=== PATIENT | female | born 1980 | race Hispanic/Latino ===

== ENCOUNTER → 2019-02-09 16:32 | Outpatient (CLI) | payer MEDICAID, SELFPAY ==
--- NOTE | 2019-02-09 16:37 | DI.US.S_ITS ---
PROCEDURE: US OB <= 14 WEEKS FETUS INDICATIONS: INITIAL DATING ULTRASOUND OUTSIDE/PRIOR DATING DATA: Last menstrual period (LMP): 12/17/18. LMP-based estimated date of delivery (YOVANI): 09/23/19. First dating scan (date and location): 02/09/19. Estimated date of delivery (YOVANI) from first dating scan: 10/07/19. TECHNIQUE: Real-time scanning was performed of the fetus and maternal pelvic organs, with image documentation. Endovaginal scanning was also performed to better visualize the fetus and maternal ovaries. COMPARISON: None. FINDINGS: Embryo: Intrauterine gestational sac present with mean sac diameter 1.0 cm corresponding to 5 weeks 5 days. A double decidual sac sign is present. No yolk sac or pole at this time. Measurement variability in dating: +/- 4 weeks by LMP, +/- 7 days by mean sac diameter (use before 6 weeks gestation if crown-rump length not able to be measured), +/- 5 days by crown-rump length (up to 8 weeks 6 days gestation), +/- 7 days by crown-rump length (up to 13 weeks 6 days gestation). Maternal organs: Ovaries within normal limits bilaterally.. Limited images through the kidneys demonstrate no hydronephrosis. IMPRESSION: Intrauterine gestational sac with double decidual sac sign and no yolk sac or pole at this time. Based on the main sac diameter, estimated gestational age is 5 weeks 5 days. If indicated, followup ultrasound in 1 week could be performed to assess viability. Dictated by: John ORNELAS Interpreted: Leena Castillo MD on 02/10/2019 at 8:58 Approved by: Leena Castillo M.D. on 02/10/2019 at 13:14
== END ==
PROVIDERS: Visit Provider Family Medicine
DX: Z34.81 Encounter for supervision of other normal pregnancy, first trimester (principal); Z3A.01 Less than 8 weeks gestation of pregnancy
CPT/HCPCS: 76801; 76817

== ENCOUNTER → 2019-02-16 17:02 | Outpatient (CLI) | payer MEDICAID, SELFPAY ==
[2019-02-16 18:27] LABS: HCG Quantitative /Beta subunit 343.59 mIU/mL
== END ==
PROVIDERS: Visit Provider Family Medicine
DX: O20.9 Hemorrhage in early pregnancy, unspecified (principal)
CPT/HCPCS: 84702

== ENCOUNTER → 2019-02-21 15:28 | Outpatient (CLI) | payer MEDICAID, SELFPAY ==
[2019-02-21 17:07] LABS: HCG Quantitative /Beta subunit 79.33 mIU/mL
== END ==
PROVIDERS: PCP Family Medicine; Visit Provider Family Medicine
DX: O20.9 Hemorrhage in early pregnancy, unspecified (principal)
CPT/HCPCS: 36415; 84702

== ENCOUNTER → 2019-04-18 10:50 | Outpatient (CLI) | payer MEDICAID, SELFPAY ==
[2019-04-18 12:25] LABS: HCG Quantitative /Beta subunit < 2.39 mIU/mL
== END ==
PROVIDERS: PCP Family Medicine; Visit Provider Family Medicine
DX: O03.9 Complete or unspecified spontaneous abortion without complication (principal)
CPT/HCPCS: 36415; 84702

== ENCOUNTER → 2019-04-24 14:36 | Outpatient (CLI) | payer MEDICAID, SELFPAY ==
--- NOTE | 2019-04-24 14:37 | DI.US.S_ITS ---
PROCEDURE: US PELVIC COMPLETE INDICATIONS: 6 WEEKS POST SAB; BLEEDING TECHNIQUE: Real-time scanning was performed of the pelvic organs, with image documentation. Additional endovaginal scanning was necessary due to incomplete visualization of the adnexal and endometrial structures by transabdominal scanning. COMPARISON: None. FINDINGS: Transabdominal scanning: Limited scanning through the kidneys shows no hydronephrosis. No pathologic free abdominal or pelvic fluid. Endovaginal scanning: Uterus: Uterus is normal in size at 4.7 x 7.4 x 9.6 cm, anteverted. The endometrium measures 8.6 mm in combined thickness. There is no sign of retained products of conception. Ovaries: The ovaries measure 3.3 x 1.7 x 1.6 cm on the right and 3.3 x 2.0 x 2.2 cm the left IMPRESSION: Normal pelvic ultrasound, no evidence of retained products of conception. Uterus is anteverted. Dictated by: Erich Mccollum M.D. on 04/24/2019 at 15:46 Approved by: Erich Mccollum M.D. on 04/24/2019 at 15:48
== END ==
PROVIDERS: PCP Family Medicine; Visit Provider Family Medicine
DX: O03.6 Delayed or excessive hemorrhage following complete or unspecified spontaneous abortion (principal)
CPT/HCPCS: 76830; 76856

== ENCOUNTER → 2019-09-04 16:06 | Outpatient (CLI) | payer MEDICAID, SELFPAY ==
--- NOTE | 2019-09-04 16:08 | DI.US.S_ITS ---
PROCEDURE: US OB <= 14 WEEKS FETUS INDICATIONS: SIZE AND DATES OUTSIDE/PRIOR DATING DATA: Last menstrual period (LMP): 07/12/19. LMP-based estimated date of delivery (YOVANI): 04/17/20. First dating scan (date and location): 09/04/19. Estimated date of delivery (YOVANI) from first dating scan: 04/18/20. TECHNIQUE: Real-time scanning was performed of the fetus and maternal pelvic organs, with image documentation. Endovaginal scanning was also performed to better visualize the fetus and maternal ovaries. COMPARISON: [facility], , OB <= 14 WEEKS FETUS, 02/09/2019, 17:10. FINDINGS: Embryo: [place]-rump length measures 14 mm corresponding to 7 weeks 4 days. Her images 152 beats per minute. Small perigestational sac bleed site measuring 1.1 x 0.8 x 0.9 cm Measurement variability in dating: +/- 4 weeks by LMP, +/- 7 days by mean sac diameter (use before 6 weeks gestation if crown-rump length not able to be measured), +/- 5 days by crown-rump length (up to 8 weeks 6 days gestation), +/- 7 days by crown-rump length (up to 13 weeks 6 days gestation). Maternal organs: Ovaries within normal limits, with right corpus luteal cyst.. Limited images through the kidneys demonstrate no hydronephrosis. IMPRESSION: 7 week 4 day single living IUP and small perigestational sac bleed. Dictated by: John ORNELAS Interpreted: Chaim Cisneros MD on 09/04/2019 at 17:08 Approved by: Chaim Cisneros M.D. on 09/04/2019 at 17:48
== END ==
PROVIDERS: PCP Family Medicine; Visit Provider Family Medicine
DX: Z34.81 Encounter for supervision of other normal pregnancy, first trimester (principal); Z3A.01 Less than 8 weeks gestation of pregnancy
CPT/HCPCS: 76801; 76830

== ENCOUNTER → 2019-09-19 16:54 | Outpatient (CLI) | payer MEDICAID, SELFPAY ==
[2019-09-19 18:22] LABS: Add Manual Diff / Slide Review NO; Basophils Absolute Auto 0 /uL (0-100); Basophils Percent Auto 0.4 % (0-2); Eosinophils Absolute Auto 100 /uL (0-450); Eosinophils Percent Auto 0.7 % (2-4); Hematocrit 37.8 % (36-46); Lymphocytes Absolute Auto 2500 /uL (1100-4500); Lymphocytes Percent Auto 32.3 % (25-40); Mean Corpuscular HGB Conc 34.5 % (30-36); Mean Corpuscular Hemoglobin 31.7 PG (26-34); Monocytes Absolute Auto 500 /uL (0-900); Monocytes Percent Auto 5.9 % (3-14); Neutrophils Absolute Auto 4800 /uL (1500-7000); Neutrophils Percent Auto 60.7 % (50-75); Platelet Count 264 X10^3/uL (150-400); Red Blood Cell Count 4.11 X10^6/uL (4.0-5.2); Red Cell Distribution Width 12.9 % (11.6-14.8); White Blood Cell Count 7.8 X10^3/uL (4.5-11.0)
[2019-09-19 19:02] LABS: Appearance Urine UA SL CLOUDY; Bilirubin Urine UA NEGATIVE (NEGATIVE); Color Urine UA YELLOW; Glucose Urine UA NEGATIVE (Negative); Ketones Urine UA NEGATIVE (NEGATIVE); Leukocyte Esterase Urine UA TRACE (NEGATIVE); Nitrite Urine UA NEGATIVE (Negative); Occult Blood Urine UA TRACE-LYSED (Negative); Protein Urine UA NEGATIVE (Negative); Specific Gravity Urine UA <=1.005 (1.000-1.035); Urobilinogen Urine UA 0.2 E.U./dL (0.2)
[2019-09-19 19:20] LABS: Bacteria Urine Occasional (0-1); Culture Indicated Urine Cult Not Indicated; RBC Urine 0-1/HPF (0-5/HPF); Squamous Epithelial Cell Urine 5-10 /HPF (0-5/HPF); Transitional Epi Cells Urine 0-1/HPF (0-5/HPF); WBC Urine 1-5/HPF (0-5/HPF)
[2019-09-19 19:22] LABS: Hepatitis B Surface Antigen NEGATIVE s/c (NEGATIVE); Rubella Antibody IgG 26.5 IU/mL (>15)
[2019-09-19 19:35] LABS: HIV 1 & 2 Ab/Ag 4th Gen Combo NEGATIVE (NEGATIVE); Hep C Virus Ab w/Reflex Quant NEGATIVE s/c (NEGATIVE)
[2019-09-22 22:40] LABS: RPR Screen Nonreactive (Nonreactive)
[2019-09-23 17:14] LABS: HSV 2 IGG AB < 0.90 index (< 0.90)
== END ==
PROVIDERS: PCP Family Medicine; Visit Provider Family Medicine
DX: Z34.91 Encounter for supervision of normal pregnancy, unspecified, first trimester (principal); Z3A.10 10 weeks gestation of pregnancy
CPT/HCPCS: 36415; 80055; 81003; 81015; 86695; 86696; 86787; 86803; 86850; 86900; 86901; 87086; 87389

== ENCOUNTER → 2019-09-19 16:56 | Outpatient (CLI) | payer MEDICAID, SELFPAY | PROVIDERS: PCP Family Medicine; Visit Provider Family Medicine | DX: Z34.91 Encounter for supervision of normal pregnancy, unspecified, first trimester (principal); Z3A.10 10 weeks gestation of pregnancy | CPT/HCPCS: 87086 ==

== ENCOUNTER → 2019-10-26 14:08 | Outpatient (CLI) | payer MEDICAID, SELFPAY ==
--- NOTE | 2019-10-26 14:09 | DI.US.S_ITS ---
PROCEDURE: US OB LIMITED INDICATIONS: HISTORY MISCARRIAGE OUTSIDE/PRIOR DATING DATA: Last menstrual period (LMP): 07/12/19. LMP-based estimated date of delivery (YOVANI): 04/17/20. First dating scan (date and location): 09/04/19. Estimated date of delivery (YOVANI) from first dating scan: 04/18/20.. TECHNIQUE: Real-time scanning was performed of the fetus, with image documentation and biometric measurements. COMPARISON: [facility], , OB <= 14 WEEKS FETUS, 09/04/2019, 16:28. FINDINGS: General: A single living intrauterine gestation is present. Presentation: Transverse. Placenta: Placental position is fundal, without previa. Amniotic fluid index: Subjectively normal. cm, normal range is 5-24 cm. heart rate: 147 beats per minute. Maternal cervical canal: 4.2 cm long. Normal lower limit is 2.5 cm. biometrics: Biparietal diameter: 15 weeks 4 days Head circumference: 15 weeks 6 days Abdominal circumference: 15 weeks 6 days Femur length: 15 weeks 6 days Estimated gestational age from initial scan: 15 weeks 0 days Composite gestational age from present scan: 15 week 6 day Measurement variability for biometric dating: +/- 7 days from 14 weeks to 15 weeks 6 days gestation, +/- 10 days from 16 weeks to 21 weeks 6 days gestation, +/- 2 weeks from 22 weeks to 27 weeks 6 days gestation, +/- 3 weeks for 28 weeks gestation or later. weight reference: 4500 g or EFW >90/95% is considered macrosomia or large for gestational age. EFW <10% is small for gestational age. EFW 5% or less is considered intra-uterine growth restriction. Other: Not applicable. IMPRESSION: 1. Single living IUP redemonstrated and minimal growth is normal. 2. Limited anatomic survey secondary to early gestational age. Follow up recommended. Dictated by: John ORNELAS Interpreted: Nancy Quintanilla MD on 10/26/2019 at 16:29 Approved by: Nancy Quintanilla M.D. on 10/27/2019 at 7:07
== END ==
PROVIDERS: PCP Family Medicine; Visit Provider Family Medicine
DX: Z36.89 Encounter for other specified antenatal screening (principal); O09.522 Supervision of elderly multigravida, second trimester; O26.22 Pregnancy care for patient with recurrent pregnancy loss, second trimester; Z3A.15 15 weeks gestation of pregnancy
CPT/HCPCS: 36415; 76815; 81420

== ENCOUNTER → 2019-10-26 14:40 | Outpatient (CLI) | payer MEDICAID, SELFPAY | PROVIDERS: PCP Family Medicine; Visit Provider Family Medicine | DX: O09.529 Supervision of elderly multigravida, unspecified trimester (principal); Z36.0 Encounter for antenatal screening for chromosomal anomalies; Z3A.12 12 weeks gestation of pregnancy | CPT/HCPCS: 36415; 81420 ==

== ENCOUNTER → 2019-12-15 13:58 | Outpatient (CLI) | payer MEDICAID, SELFPAY ==
--- NOTE | 2019-12-15 14:00 | DI.US.S_ITS ---
PROCEDURE: OB >= 14 WEEKS FETUS INDICATIONS: 20 WEEK ANATOMY OUTSIDE/PRIOR DATING DATA: Last menstrual period (LMP): 07/04/19. LMP-based estimated date of delivery (YOVANI): 04/17/20. First dating scan (date and location): 09/04/19. Estimated date of delivery (YOVANI) from first dating scan: 04/18/2020. TECHNIQUE: Real-time scanning was performed of the fetus, with image documentation and biometric measurements. Endovaginal scanning: Deferred COMPARISON: [facility], OB <= 14 WEEKS FETUS, 09/04/2019, 16:28. [facility], OB LIMITED, 10/26/2019, 14:17. FINDINGS: General: A single living intrauterine gestation is present. Presentation: Breech. Placenta: Placental position is anterior without previa. Amniotic fluid index: 15.2 cm, normal range is 5-24 cm. heart rate: 136 beats per minute. Maternal cervical canal: 4.4 cm long. Normal lower limit is 2.5 cm. biometrics: Biparietal diameter: 5.6 cm, 23 weeks, zero days Head circumference: 20.4 cm, 22 weeks, 5 days Abdominal circumference: 18.0 cm, 22 weeks, 6 days Femur length: 3.9 cm, 22 weeks, 4 days Estimated gestational age from initial scan: 22 weeks, one day. Composite gestational age from present scan: 23 weeks, zero days Estimated weight and percentile: 531 g, 75th percentile Measurement variability for biometric dating: +/- 7 days from 14 weeks to 15 weeks 6 days gestation, +/- 10 days from 16 weeks to 21 weeks 6 days gestation, +/- 2 weeks from 22 weeks to 27 weeks 6 days gestation, +/- 3 weeks for 28 weeks gestation or later. weight reference: 4500 g or EFW >90/95% is considered macrosomia or large for gestational age. EFW <10% is small for gestational age. EFW 5% or less is considered intra-uterine growth restriction. Anatomic survey: Neuro: Ventricles are non-dilated at less than 10 mm. Cisterna magna is normal at 3-11 mm. Cerebellum is normal in size and morphology. Nuchal skin fold: Normal at less than 6 mm between 14-21 weeks gestational age. Face: Nose and lips, facial profile are normal. Spine: No evidence for spina bifida. Heart: 4-chambered heart is present, with normal ventricular outflow tracts. Diaphragm: Diaphragm is intact. Stomach: Left-sided stomach is present. Kidneys: No hydronephrosis. Normal is less than 5 mm in 2nd trimester, less than 7 mm in 3rd trimester. Cord: 3-vessel cord has orthotopic insertion. Bladder: Normal in size. Extremities: All 4 extremities identified. IMPRESSION: 1. Single living intrauterine with a composite gestational age of 23 weeks, zero days, 6 days ahead of the initially assigned gestational age. 2. Symmetric growth and normal anatomy. Dictated by: Radha Prabhakar M.D. on 12/15/2019 at 17:50 Approved by: Radha Prabhakar M.D. on 12/15/2019 at 17:58
== END ==
PROVIDERS: PCP Family Medicine; Visit Provider Family Medicine
DX: Z36.89 Encounter for other specified antenatal screening (principal); Z3A.23 23 weeks gestation of pregnancy
CPT/HCPCS: 76811

== ENCOUNTER 2020-03-14 12:12 | Outpatient (CLI) | payer MEDICAID, SELFPAY ==
--- NOTE | 2020-03-14 12:52 | PM.OBTRLD ---
Visit Information Visit Information Date of evaluation: 03/14/20 Primary OB Provider: Stephani Ramos Reason for Evaluation: Yes non-stress test non-stress test reason: diabetes (GDMA2 on metformin) Vital Signs Vital Signs: Temperature 37.2? blood pressure 120/72 heart rate 77 PFSH Medical History Advanced maternal age (AMA) in (Acute) History of recurrent miscarriages (Acute) Surgical History H/O dilation and curettage (Resolved) Family History Mother Diabetes mellitus Social History marital status: number of children: 3 Smoking Status: Never smoker alcohol intake: never substance use type: does not use Evaluation Evaluation Baseline heart rate: 150 Variability: Moderate (11-25) monitor accelerations: Present monitor decelerations: Absent Uterine Contraction Intensity: Mild Diagnosis, Plan/Disposition Final Diagnosis (1) 35 weeks gestation of : Current Visit: Yes Status: Acute (2) GDM, class A2: Current Visit: Yes Status: Acute Plan/Disposition Plan: Reactive NST. Plan for twice weekly NST and weekly [place]. OB Disposition: home
== END 2020-03-14 12:58 | disposition home or self-care (01) ==
LOC: LABOR 12:58 → OB 03-18 14:23
PROVIDERS: PCP Family Medicine; Referring Provider Family Medicine; Visit Provider Family Medicine
DX: O24.415 Gestational diabetes mellitus in pregnancy, controlled by oral hypoglycemic drugs (principal); Z3A.35 35 weeks gestation of pregnancy
CPT/HCPCS: 59025; G0378; G0379

== ENCOUNTER 2020-03-18 11:01 | Outpatient (CLI) | payer MEDICAID, SELFPAY ==
--- NOTE | 2020-03-18 11:39 | PM.OBTRLD ---
Visit Information Visit Information Date of evaluation: 03/18/20 Primary OB Provider: Stephani Ramos Reason for Evaluation: Yes non-stress test non-stress test reason: diabetes (GDMA2) Vital Signs Vital Signs: Temperature 97.3? blood pressure 120/76 heart rate 78 PFSH Social History marital status: number of children: 3 Smoking Status: Never smoker alcohol intake: never substance use type: does not use Evaluation Evaluation Baseline heart rate: 150 Variability: Moderate (11-25) monitor accelerations: Present monitor decelerations: Absent Contraction Frequency (minutes): 7 Uterine Contraction Intensity: Mild Diagnosis, Plan/Disposition Final Diagnosis (1) GDM, class A2: Current Visit: No Status: Acute (2) 35 weeks gestation of : Current Visit: No Status: Acute Plan/Disposition Plan: Reactive NST for GDMA2. Continue twice weekly NST with weekly [place]. OB Disposition: home
== END 2020-03-18 12:00 | disposition home or self-care (01) ==
LOC: LABOR 11:20 → OB 03-19 09:12
PROVIDERS: PCP Family Medicine; Referring Provider Family Medicine; Visit Provider Family Medicine
DX: O24.415 Gestational diabetes mellitus in pregnancy, controlled by oral hypoglycemic drugs (principal); Z3A.35 35 weeks gestation of pregnancy
CPT/HCPCS: 59025; G0378; G0379

== ENCOUNTER 2020-03-21 15:23 | Inpatient (IN) | payer MEDICAID, SELFPAY ==
--- NOTE | 2020-03-21 16:08 | PM.OBHP.1 ---
OB HPI Date/Time Date of admission: 03/21/20 Date Patient Seen: 03/21/20 Time Patient Seen: 15:15 History of Present Condition Chief complaint: observation : 7 Para: 3 Estimated Date of Delivery: 04/16/20 Estimated Gestational Age (weeks): 36w2d Narrative: Lupe Galloway is a 39 year old at 36 weeks and 2 days gestation in active labor. Contractions began early this morning. She presented to [facility] but was sent home. Contractions picked up in intensity at approximately 2:00 p.m. today. She reports good movement and denies leaking of fluid or vaginal bleeding. She received regular care until 24 weeks then canceled multiple appointments due to concern for COVID-19. She saw the doctor that took care of her for her last on [facility] at 33 weeks. At that visit she had a 1 hour Glucola which was elevated. Follow-up 3 hour Glucola was also significantly elevated. She followed up in our clinic at 34 weeks when results were still pending. Records were received after that visit which confirmed gestational diabetes and she was started on metformin 500 daily. An ultrasound was done at [facility] which gave an estimated at the ninety-ninth percentile at 34 weeks gestation. She had 1 follow-up visit in clinic with mildly uncontrolled sugars and metformin was increased to a 500 b.i.d.. Fasting blood sugar this morning was 94. She has been taking metformin as prescribed. History of Present care: limited care (No care after 24 weeks until 33 weeks), initiated at week # (10), number of visits (7) and pounds weight gain (32) Dating criteria: LMP confirmed by 1st trimester US Ultrasounds: normal mid trimester US Obstetrical complications: gestational diabetes Medical complications: none Preadmission Labs Blood type: A (+) positive -: Antibody screen: negative, GBS status: unknown, HBsAG: negative, HIV: positive, HSV 1: positive, HSV 2: negative and RPR/VDLR: negative -: Chlamydia screen: not detected and Gonorrhea screen: not detected -: Rubella: immune and Varicella: immune HCT: 37 HCAB: negative PAP: Normal Cell-free DNA: Normal female Urine: Negative Narrative: Results of her 1 hour and 3 hour Glucola was are not available in the scans but were both abnormal upon review 2 weeks ago. Prior (ies) History: 09/21/00 39 wks, 7 hour labor, 6 lb 2 oz male, breast fed 6 months 05/04/06 39 wks, 1 hour labor, 7 lb male, breast fed 4 months 11/15/13 SAB 11 wks 11/10/16 41 wks, 1 hour labor, 9 lb 10 oz male, breast fed 24 months 11/15/16 SAB 8 wks 02/09/19 SAB 5 wks Evaluation Evaluation Baseline heart rate: 140 Variability: Moderate (11-25) monitor accelerations: Absent monitor decelerations: Absent Category of Tracing: II Cervical dilation (cm): 10 Cervical effacement (%): 100 station: -1 [facility] Medical History Advanced maternal age (AMA) in (Acute) History of recurrent miscarriages (Acute) Surgical History H/O dilation and curettage (Resolved) Family History Mother Diabetes mellitus Social History marital status: number of children: 3 Smoking Status: Never smoker alcohol intake: never substance use type: does not use Meds Home Medications and Allergies Home Medications Medication Instructions Recorded Confirmed Type prenat.vits,ezekiel,ttq-ozao-dssre 1 tab PO DAILY #90 tab 09/19/19 03/18/20 Rx Maternity Belt #1 ea 03/07/20 03/07/20 Rx blood sugar diagnostic #100 each 03/07/20 03/07/20 Rx blood-glucose meter #1 each 03/07/20 03/07/20 Rx lancets #100 each 03/07/20 03/07/20 Rx metformin 500 mg PO BID 03/18/20 03/18/20 History Allergies Allergy/AdvReac Type Severity Reaction Status Date / Time No Known Drug Allergies Allergy Verified 02/24/19 09:36 Review of Systems Review of Systems ROS: Yes All systems reviewed with the patient and are negative except as otherwise documented Exam Vital Signs (past 8 hours): Temperature 36.8? blood pressure 131/77 heart rate 80 Const General: cooperative and healthy appearing [facility] Head: normal to inspection Ears: hearing grossly normal bilaterally Nose: external nose normal Face and sinus: normal facial exam Mouth: oral mucosae normal Eyes General: appearance normal, both eyes and all related structures Neck Neck: normal visual inspection Resp Effort & Inspection: normal respiratory effort Auscultation: clear to auscultation bilaterally Cardio Rate: regular rate Rhythm: regular rhythm Heart Sounds: no murmurs GI Other: Gravid External Female Exam: external appearance normal Manual OB Exam: dilated 10, effaced fully and station -1 Presentation: vertex Estimated Weight (lbs): 8 Amniotic Fluid: clear Back/Spine/Pelvis Back: normal to inspection Skin General: no rashes or lesions noted Extrem General: normal to inspection and no pedal edema Objective Labs Result Diagrams: 03/21/20 15:30 Assessment and Plan Assessment and Plan Assessment and Plan narrative: Patient is a 39-year-old at 36 weeks and 2 days by LMP confirmed with first trimester ultrasound. GBS was to be performed in clinic today however patient did not come to her appointment thus GBS is unknown. Upon arrival patient was found to be complete with a bulging bag of water. AROM performed with subsequent delivery of . Please see delivery note. was complicated by a lapse in care from 24-34 weeks. Diagnosis of gestational diabetes was made at 33 weeks based on labs done at [facility]. Patient was started on metformin with improvement in glycemic control however not completely controlled.
--- NOTE | 2020-03-21 16:08 | PM.OBPRVD ---
 Events: Labor < 37 Weeks and Gestational Diabetes Labor & Delivery Delivery date: 03/21/20 Intrapartal events: Precipitous Labor < 3 hours Delivery augmentation: rupture of membranes Delivery monitor: external FHT Route of delivery: L&D Laceration Description: Perineal - 2nd Degree Delivery repair: chromic Estimated blood loss (mL): 400 Anesthesia type: None Narrative: Patient presented to the center in active labor and was found to be complete with a bulging bag. STAGE I: Labor Contractions began this morning however picked up in intensity at 2:00 p.m.. AROM at 3:30 p.m. with copious clear fluid. Stage I duration 1 hour 30 minutes. There was no analgesia for labor. STAGE II: Delivery Patient was complete and pushed over 1 contraction to deliver a vigorous female infant at 3:40 p.m.. Infant was vertex and direct away. was immediately placed on mother's abdomen. Cord was clamped and cut after 1 minutes delay. Apgars were 8 and 9. No resuscitation of the required. STAGE III: Placenta/Cord Placenta delivered spontaneously after active management and appeared intact with a three-vessel cord at 3:44 p.m.. IM Pitocin given after delivery of placenta. A second degree perineal laceration was repaired in the usual fashion with 3-0 Vicryl with good hemostasis. Fundus firm below umbilicus after delivery. EBL: 400 mL. Needle and sponge counts were correct. The vagina was inspected and no items were left in situ. Patient was doing well with Melisa, her and at bedside. [place] Baby 1: gender: Female Presentation: vertex Placenta delivery description: Spontaneous cord vessel description: 3 Vessels score (1 min): 8 score (5 min): 9
[2020-03-21 16:25] LABS: Hemoglobin 12.2 g/dL (12.0-16.0); Mean Corpuscular HGB Conc 33.1 % (30-36); Mean Corpuscular Hemoglobin 28.7 PG (26-34); Mean Corpuscular Volume 86.8 fL (80-100); Platelet Count 247 X10^3/uL (150-400); Red Blood Cell Count 4.26 X10^6/uL (4.0-5.2); Red Cell Distribution Width 14.4 % (11.6-14.8); White Blood Cell Count 10.1 X10^3/uL (4.5-11.0)
[2020-03-21 16:27] LABS: Add Manual Diff / Slide Review YES
[2020-03-21 16:57] LABS: Neutrophils Absolute Manual 5050 /uL (3000-5900); Total Cells Counted 100
[2020-03-21 16:58] LABS: RBC Morphology Normal Morphology
[2020-03-21] MEDS: DERMOPLAST SPRAY 20% 60 ML 1 SPRAY TOP (18:50)
[2020-03-21] MEDS: IBUPROFEN 600 MG TABLET PO (18:50)
[2020-03-21 19:33] VITALS: BP 126/62
[2020-03-22] MEDS: IBUPROFEN 600 MG TABLET PO ×4 (00:50→21:33)
[2020-03-22 06:22] LABS: Hematocrit 33.2 % (36-46); Hemoglobin 11.2 g/dL (12.0-16.0)
--- NOTE | 2020-03-22 09:10 | P.PNOB_ITS ---
Subjective - OB Subjective Patient comments: no complaints, pain well controlled, tolerating diet and flatus present baby status: doing well and nursing well [place] feeding status: exclusively breast feeding Date Patient Seen: 03/22/20 Time Patient Seen: 08:30 Exam Vital Signs (past 8 hours): Temperature 97.3? blood pressure 120/73 respirations 18 Narrative Exam Narrative: General: Awake and alert, no acute distress. HEENT: NCAT, EOMI, moist oral mucosa CV: Regular rate and rhythm, no murmurs, rubs or gallops Lungs: CTAB, no wheezes, rales, or rhonchi Abdomen: Soft, nontender; bowel tones active; uterus firm at umbilicus Extremities: Warm, no edema Objective Labs Result Diagrams: 03/22/20 06:16 Labs: Laboratory Results - last 24 hr 03/21/20 03/21/20 03/22/20 15:30 15:30 06:16 WBC 10.1 RBC 4.26 Hgb 12.2 11.2 L Hct 37.0 33.2 L MCV 86.8 MCH 28.7 MCHC 33.1 RDW 14.4 Plt Count 247 Neut % (Auto) Not Reportable Lymph % (Auto) Not Reportable [place] % (Auto) Not Reportable Eos % (Auto) Not Reportable Baso % (Auto) Not Reportable Lymph # (Auto) Not Reportable [place] # (Auto) Not Reportable Baso # (Auto) Not Reportable Total Counted 100 Seg Neutrophils % 48.0 Band Neutrophils % 2.0 L Lymphocytes % (Manual) 43.0 Monocytes % (Manual) 5.0 Eosinophils % (Manual) 1.0 L Basophils % (Manual) 1.0 Neutrophils # (Manual) 5050 RBC Morphology Normal morphology Blood Type A Positive Antibody Screen Negative Assessment & Plan Assessment and Plan (1) 36 weeks gestation of : Status: Acute Current Visit: Yes (2) Spontaneous vaginal delivery: Status: Acute Current Visit: Yes (3) GDM, class A2: Status: Acute Current Visit: No Plan day: 1 plan OB: routine care Comments: 39-year-old day 1 after precipitous vaginal delivery at 36 weeks and 2 days. Patient and are both doing very well. Possible discharge late today if infant continues to do well, otherwise they will stay another night and potentially discharge home tomorrow. Time Spent With Patient Time: Total time spent is greater than 50% in coordination of care (as documented) at patient's floor/unit and/or counseling patient: Time with patient: less than 15 minutes
[2020-03-22] MEDS: LANOLIN OINT 7 GM 1 APPLIC TOP (14:53)
--- NOTE | 2020-03-23 07:25 | P.DS_ITS ---
History of Present Illness History of Present Illness Chief complaint: MATERNITY Discharge Providers Provider Date of admission: 03/21/20 15:23 Discharge Date: 03/23/20 Primary care physician: Stephani Ramos DO Consults: 03/22/20 16:06 Consult to It [employer] Consultant Routine Comment: Discharge provider: Ziggy Kwon MD Summary Hospital Course Discharge Diagnosis: Vaginal delivery Routine post vaginal delivery care Limited OB care Hospital Course: Routine post delivery care. Vital signs are stable. Hemoglobin hematocrit stable. Pain well controlled tolerating diet. She Exam Narrative Exam Narrative: General: Alert no apparent distress. Affect is appropriate. Radha it is uncomfortable. HEENT: Neck is supple without lymphadenopathy pupils equal round and reactive. Cardio: S1-S2 regular rate and rhythm. Respiratory: Lungs clear to auscultation. Abdomen: Uterus firm. Extremities: Normal deep tendon reflexes trace edema. Objective Labs Result Diagrams: 03/22/20 06:16 Discharge Plan Discharge Plan Patient Disposition: Home Discharge orders & Medications Prescriptions: New docusate sodium [DOK] 100 mg Capsule 100 mg PO DAILY Qty: 30 RF: 0 ibuprofen 600 mg Tablet 600 mg PO Q6HR PRN (Reason: Pain, Mild (1-3)) Qty: 30 RF: 0 Continued prenat.vits,ezekiel,gci-xdno-hlyod Tablet 1 tab PO DAILY Qty: 90 RF: 3 Discontinued (DME) Maternity Belt Qty: 1 RF: 0 (DME) lancets Misc See Rx Instructions .ROUTE .MEDSUPPLY Qty: 100 RF: 11 (DME) Blood Glucose Test Strip See Rx Instructions .ROUTE .MEDSUPPLY Qty: 100 RF: 11 (DME) blood-glucose meter Misc See Rx Instructions .ROUTE .MEDSUPPLY Qty: 1 RF: 0 metformin 500 mg tablet 500 mg PO BID RF: 0 Follow up/Referrals: Stephani Ramos DO [Primary Care Provider] - (Call on Wednesday for an appointment with Dr. Ramos) Visit Report/Discharge Packet Stand Alone Forms: Discharge: Care Visit Report Forms: Patient Portal/API, Stroke Signs & Symptoms Discharge Data Primary Care Provider: Stephani Ramos Discharges patient from system. Discharge Date/Time: 03/23/20 10:03
[2020-03-23] MEDS: IBUPROFEN 600 MG TABLET PO (07:48)
== END 2020-03-23 10:03 | disposition home or self-care (01) | DRG 805 ==
PROVIDERS: Admitting Provider Family Medicine; PCP Family Medicine; Referring Provider Family Medicine; Visit Provider Family Medicine
DX: O24.425 Gestational diabetes mellitus in childbirth, controlled by oral hypoglycemic drugs (principal); O60.23X0 Term delivery with preterm labor, third trimester, not applicable or unspecified; Z37.0 Single live birth; O62.3 Precipitate labor; O70.1 Second degree perineal laceration during delivery; Z3A.36 36 weeks gestation of pregnancy
CPT/HCPCS: 36415; 59050; 59410; 85014; 85018; 85025; 86850; 86900; 86901; G0379

== ENCOUNTER → 2020-05-07 12:38 | Outpatient (CLI) | payer MEDICAID, SELFPAY ==
[2020-05-07 17:23] LABS: Urine N gonorrhoeae NOT DETECTED
[2020-05-07 17:24] LABS: Urine Chlamydia NOT DETECTED
== END ==
PROVIDERS: PCP Family Medicine; Visit Provider Family Medicine
DX: Z11.8 Encounter for screening for other infectious and parasitic diseases (principal); Z30.430 Encounter for insertion of intrauterine contraceptive device
CPT/HCPCS: 87491; 87591

== ENCOUNTER → 2020-06-13 07:30 | Outpatient (CLI) | payer MEDICAID, SELFPAY ==
[2020-06-13 08:44] LABS: Glucose Fasting 109 mg/dL (70-100)
[2020-06-13 08:53] LABS: Glucose Tol Interpretation INTERPRETATION
[2020-06-13 10:03] LABS: Glucose 2 Hour 129 mg/dL (70-140)
[2020-06-13 11:49] LABS: Glucose 1 Hour 107 mg/dL (70-170)
== END ==
PROVIDERS: PCP Family Medicine; Referring Provider Family Medicine; Visit Provider Family Medicine
DX: O24.419 Gestational diabetes mellitus in pregnancy, unspecified control (principal)
CPT/HCPCS: 36415; 82951; 82952